=== PATIENT | male | born 1980 | race Caucasian/White ===

== ENCOUNTER 2023-04-19 09:37 | Day surgery (SDC) | payer MEDICAID, SELFPAY ==
[2023-04-17 11:48] VITALS: BMI 25.0
[2023-04-19 10:08] VITALS: BP 110/65; PULSE 67; RESP 18; TEMP 36.4; O2SAT 99; BMI 22.2
--- NOTE | 2023-04-19 10:16 | P.CONAN_ITS ---
[facility] Past Medical History Medical History Opioid dependence in remission History of rhabdomyolysis Schizoaffective disorder PTSD (post-traumatic stress disorder) History of acute renal failure Stroke Family History Family history of problems with anesthesia: Unobtainable Surgical History Surgical History History of colonoscopy History of Problems with Anesthesia: No Social History Social History Patient Tobacco Use Status: Current someday Tobacco user Tobacco use type: Cigarette Date Education Initiated: 04/19/23 Use of substances other than those prescribed or required for medical reasons: No Substance Use Type Other:: off suboxone, 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 Are you DNR?: No Advance Directives: No Advance Directives Information Provided: Yes Meds Allergies Allergy/AdvReac Type Severity Reaction Status Date / Time No Known Allergies Allergy Unverified 04/02/20 17:40 [No Known Allergies*] Exam Exam Date and Time: April 19, 2023 1016 Height,Weight and Vital Signs: Height 5 ft 10 in Weight 70.307 kg Last Vital Signs Temp 97.5 F 04/19/23 10:08 Pulse 67 04/19/23 10:08 Resp 18 04/19/23 10:08 BP 110/65 04/19/23 10:08 Pulse Ox 99 04/19/23 10:08 O2 Del Method Room Air 04/19/23 10:08 Airway Mallampati Class: II TM Dist: >3cm Neck ROM: Full Loose/Missing/Broken Teeth: No Heart: RRR Lungs: CTA Assessment and Plan Assessment Anesthesia Assessment: Anesthesia Plan Discussed and Chart Reviewed Final Anesthetic Review Family History of Problems with Anesthesia: Unobtainable History of Problems with Anesthesia: No NPO: Yes ASA Class: II Final Preanesthetic Review: Meds/Allgs Chart Reviewed, Consent Obtained/Reviewed and Anes Risks/Benef Reviewed Patient Risk: Low Procedure Risk: Low Anesthetic Plan Anesthetic Plan: GA Disposition: Standard PACU
[2023-04-19] MEDS: Lactated Ringers 1,000 ML 50 ML IVCONT (10:37)
[2023-04-19 11:30] VITALS: BP 117/70; PULSE 70; RESP 19; TEMP 36.6; O2SAT 100
[2023-04-19 11:35] VITALS: BP 115/69; PULSE 70; RESP 17; O2SAT 100
--- NOTE | 2023-04-19 11:35 | P.OPHTHAL_ITS ---
Ophthalmology Operative Note Date of Service: 04/19/23 Narrative: Diagnosis exotropia. Procedure bilateral lateral rectus recessions of [address] Bradshaw. Anesthesia general. Complications none. The patient was brought to the operating room placed under general anesthesia. The eyes were prepped and draped in the usual sterile ophthalmic fashion. A lid speculum was placed in the right eye and incisions made at bare sclera in the inferotemporal fornix. The lateral rectus muscle was hooked and secured with a double-armed Vicryl suture. The muscle was disinserted the globe and reattached to a position 7 mm behind the original insertion. Conjunctiva was closed with int errupted Vicryl sutures. An identical procedure was then performed on the left eye. The patient was woken from general anesthesia and discharged to postoperative recovery in good condition.
[2023-04-19 11:40] VITALS: BP 112/68; PULSE 77; RESP 13; O2SAT 100
[2023-04-19 11:45] VITALS: BP 122/76; PULSE 72; RESP 17; O2SAT 100
[2023-04-19 12:00] VITALS: BP 138/74; PULSE 74; RESP 12; TEMP 36.6; O2SAT 100
== END 2023-04-19 12:46 | disposition home or self-care (01) ==
PROVIDERS: Visit Provider Ophthalmology
PROC: (CPT 67311; principal; 2023-04-19 11:40)
DX: H50.112 Monocular exotropia, left eye (principal); F25.9 Schizoaffective disorder, unspecified; F11.21 Opioid dependence, in remission; F43.10 Post-traumatic stress disorder, unspecified; Z86.73 Personal history of transient ischemic attack (TIA), and cerebral infarction without residual deficits; F17.210 Nicotine dependence, cigarettes, uncomplicated
CPT/HCPCS: 67311; C1713; J1100; J1885; J2250; J2405; J3010